=== PATIENT | male | born 1955 | race Caucasian/White ===

== ENCOUNTER 2017-12-02 07:36 | Day surgery (SDC) | payer OTHER ==
[2012-08-11 09:15] VITALS: BP 152/92
--- NOTE | 2017-12-02 16:07 | GI Report ---
REFERRING PHYSICIAN: Dr. Katharine Milton SOA ENGINEER: Dell Wong MD PROCEDURE MEDICATION: Propofol as per anesthesia. INDICATIONS: Patient is a 62-year-old man with a high risk. His brother had colon cancer. Patient has had polyps in the past. He also has metabolic syndrome and central obesity. He weighs 390 pounds. PROCEDURE PERFORMED: Colonoscopy and polypectomy. PROCEDURE: An Olympus video colonoscope was advanced to the rectum. In the sigmoid, he has moderate to severe diverticular disease. There was a 3 to 4 mm sessile polyp removed at 30 cm in the sigmoid. A very atonic redundant colon. It took nurse compression and reducing loops to finally reach the base of the cecum. The prep was fair. We did lavage the pimentel to get a better view. In the ascending colon near the hepatic flexure, patient has 2 polyps, 1 was about a 4 mm flat polyp and the other was about a 3 mm flat polyp removed with a cold snare. The main part of the transverse colon was redundant. Descending colon and sigmoid were redundant and diverticular disease. Retroflexion of the rectum shows hemorrhoids. Patient tolerated the procedure well. FINDINGS: 1. Three polyps removed from the colon. 2. Moderate to severe diverticular disease. 3. A very atonic redundant colon. 4. Metabolic syndrome. RECOMMENDATIONS: 1. Pending the pathology of the polyps, consider re-looking at his colon within 5 years. 2. Again, recommend he cut back drastically on the carbohydrates in his diet. That would help his metabolic syndrome immensely. As far as his diabetes, hyperlipidemia, and blood pressure, it would all significantly improve with weight loss. 3. Follow up with Dr. Milton. cc: Dr. Katharine LARRY
== END 2017-12-02 07:38 ==
LOC: OPSURG 07:36
PROVIDERS: ATTEND Internal Medicine Gastroenterology
DX: K63.5 Polyp of colon (principal); D12.5 Benign neoplasm of sigmoid colon; D12.3 Benign neoplasm of transverse colon; K57.30 Diverticulosis of large intestine without perforation or abscess without bleeding; K59.8 Other specified functional intestinal disorders; E88.1 Lipodystrophy, not elsewhere classified; E66.9 Obesity, unspecified; Z80.0 Family history of malignant neoplasm of digestive organs
CPT/HCPCS: 88305; J2001; J2704; J7120; 45385; S1016